=== PATIENT | male | born 1995 | race Two or more races ===

== ENCOUNTER 2017-02-09 17:39 | Emergency (ER) | payer OTHER ==
[~2017-02-09] VITALS: Ht 177.8 cm; Wt 72.6 kg
[2017-02-09 17:39] VITALS: BP 137/80
[2017-02-09] MEDS ORDERED: LORAZEPAM 1 MG TABLET PO ONE (19:30)
[2017-02-09] MEDS ORDERED: LORAZEPAM 1 MG TABLET ONE (19:52)
== END 2017-02-09 20:01 | disposition home or self-care (01) ==
LOC: EDBD 17:42 → ER 17:42
DX: F41.9 Anxiety disorder, unspecified (principal); F15.10 Other stimulant abuse, uncomplicated; F17.200 Nicotine dependence, unspecified, uncomplicated
CPT/HCPCS: 99284; A4606; Z7610